=== PATIENT | male | born 1955 | race Caucasian/White ===

== ENCOUNTER → 2023-04-30 | Day surgery (SDC) | payer MEDICARE, OTHER ==
[~2023-04-30] VITALS: Ht 180.3 cm; Wt 85.3 kg
[~2023-04-30] MED LIST: DEXAMETHASONE 4MG/ML 1ML VIAL ONE; FINA5TAB11 PO; GLYCOPYRROLATE 0.2 MG/ML 2ML VIAL ONE; HYDROMORPHONE HCL/PF 2MG/ML CPJ IV PRN; HYDROMORPHONE HCL/PF 2MG/ML CPJ ONE; LABETALOL 5MG/ML SYR 20 MG/4 ML SYRINGE IV PRN; LACTATED RINGERS 1,000 ML IV SCH; LEVO50TA8 PO; MEPERIDINE HCL/PF 25MG/ML CPJ IV PRN; METO100T16 PO; NEOSTIGMINE METHYLSULFATE 1MG/ML 10 ML VIAL ONE; ONDANSETRON HCL 4MG/2ML INJ IV PRN; ONDANSETRON HCL 4MG/2ML INJ ONE; PHEN300C6 PO; PROPOFOL 200MG/20ML VIAL IV ONE; RIVA20TA PO; ROCURONIUM BROMIDE 10MG/ML VIAL 5ML IV ONE; SUCCINYLCHOLINE CHLORIDE 200MG/10ML IV ONE; TADA5TAB PO
== END | disposition home or self-care (01) ==
LOC: OR 05:38
PROVIDERS: ATTEND Urology
DX: C61 Malignant neoplasm of prostate (principal); I48.91 Unspecified atrial fibrillation; I10 Essential (primary) hypertension; Z79.899 Other long term (current) drug therapy; Z98.890 Other specified postprocedural states; Z88.0 Allergy status to penicillin
CPT/HCPCS: 55880; J1100; J3490 ×2; J2710; J2405; J2704; J0330; J1170; A4217 ×2; Z7610 ×20; C1729